=== PATIENT | male | born 1955 | race Caucasian/White ===

== ENCOUNTER 2016-11-19 08:48 | Day surgery (SDC) | payer BC ==
[~2016-11-19 08:48] MED LIST: Sodium Chloride 0.9% 5 ML Syringe FLUSH PRN
[2016-11-19] MEDS: Lactated Ringers 1,000 ML IV SCH (09:21)
--- NOTE | 2016-11-19 09:49 | PCM.PN ---
- General Info Date of Service: 11/19/16 - Review of Systems Systems Review Comment:: 61-year-old male here for upper and lower endoscopy. His lastcolonoscopy was about 10 years ago. He has never had a previous upper endoscopy. He is noticing some worsening symptoms of GERD. This is despite regular use of omeprazole. He is medically stable to proceed today with no significant change in his health status since his recent exam. I discussed the proposed upper and lower endoscopy with the patient. Risks such as but not limited to bleeding and GI injury or discussed. He appears to understand and agrees to proceed. - Patient Data Vitals - most recent: Last Vital Signs Temp 97.1 F 11/19/16 09:07 Pulse 83 11/19/16 09:07 Resp 16 11/19/16 09:07 BP 138/84 11/19/16 09:07 Pulse Ox 97 11/19/16 09:07 Weight - most recent: 99.79 kg Med Orders - Current: Current Medications Lactated Ringer's (Ringers, Lactated) 1,000 mls @ 50 mls/hr IV ASDIRECTED MINNIE Last Admin: 11/19/16 09:21 Dose: 50 mls/hr Sodium Chloride (Syrex Flush) 5 ml FLUSH Q8HR PRN PRN Reason: Keep Vein Open - Problem List Review Problem List Initiated/Reviewed/Updated: Yes - My Orders Last 24 Hours: My Active Orders 11/18/16 11:23 Resuscitation Status Routine 11/18/16 Dinner Nothing Per Oral Diet [DIET] 11/19/16 08:45 Peripheral IV Care [RC] . DIRECTED Verify Patient Consent Obtain [RC] ASDIRECTED Lactated Ringers [Ringers, Lactated] 1,000 ml IV ASDIRECTED Sodium Chloride 0.9% [Syrex Flush] 5 ml FLUSH Q8HR PRN Peripheral IV Insertion Adult [OM.PC] Routine 11/19/16 09:00 Patient to Empty Bladder [RC] ASDIRECTED - Assessment Assessment:: GERD Colon cancer screening - Plan Plan:: upper and lower endoscopy
[2016-11-19] MEDS ORDERED: Midazolam 1 MG/ML 2 ML SDV ONE (10:10)
[2016-11-19] MEDS ORDERED: Lidocaine 2% 100 MG/5 ML Syringe ONE (10:10)
[2016-11-19] MEDS ORDERED: Propofol 200 MG/20 ML SDV ONE (10:10)
[2016-11-19] MEDS ORDERED: fentaNYL 100 MCG/2 ML SDV ONE (10:10)
--- NOTE | 2016-11-19 11:08 | PCM.OPNOTE ---
- General Post-Op/Procedure Note Date of Surgery/Procedure: 11/19/16 Operative Procedure(s): EGD with biopsy and colonoscopy Findings: moderate distal esophagitis likely secondary to reflux small hiatal hernia External hemorrhoids Pre Op Diagnosis: GERD. Colon cancer screening Post-Op Diagnosis: Reflux esophagitis. Hiatal hernia. Hemorrhoids Anesthesia Technique: MAC Primary Surgeon: Shaquille Moore Pathology: biopsies of gastric antrum and distal esophagus Output, Urine Amount: 0 EBL in mLs: 4 Complications: None Condition: Good
[2016-11-19] MEDS: fentaNYL 100 MCG/2 ML SDV ONE (11:34)
[2016-11-19] MEDS: Lidocaine 2% 100 MG/5 ML Syringe ONE (11:35)
[2016-11-19] MEDS: Propofol 200 MG/20 ML SDV ONE (11:35)
[2016-11-19] MEDS: Midazolam 1 MG/ML 2 ML SDV ONE (11:35)
[2016-11-19 11:52] VITALS: BP 149/87
--- NOTE | 2016-11-19 19:47 | OR ---
DATE OF SURGERY: 11/19/2016 SURGEON: Shaquille Moore MD PREOPERATIVE DIAGNOSIS: Gastroesophageal reflux disease and colon cancer screening. POSTOPERATIVE DIAGNOSIS: Hiatal hernia with reflux esophagitis, and external hemorrhoids. OPERATION PERFORMED: Esophagogastroduodenoscopy with biopsy and colonoscopy. INDICATIONS FOR SURGERY: This 61-year-old male is referred for upper endoscopy because of symptoms of gradually worsening acid reflux despite use of omeprazole. He also comes for colonoscopy for colon cancer screening. FINDINGS: On upper endoscopy, the patient has a moderate degree of reflux esophagitis. This encompasses approximately the distal 5 cm of the esophagus. There is areas of hyperemia and some mucosal change although without nodularity or mass effect. The patient has a small hiatal hernia, approximate 2 cm length. The remainder of the stomach and duodenum appear normal. The patient's colon appears normal and colonoscopy although he does have moderate-sized external hemorrhoids. PROCEDURE: The patient was taken to the operating room. He was given intravenous sedation and with him in the left lateral decubitus position, the esophagus is intubated with the Olympus gastroscope. This is carefully advanced under direct visualization through the esophagus, stomach, and into the duodenum where examination to the third portion is performed. After examining the duodenum, the stomach is fully examined including retroflexed examination of the fundus. Random biopsies of the antrum were taken to rule out H. pylori. The upper stomach and GE junction are then carefully re-examined. Biopsies were taken at multiple levels including the GE junction and distal esophagus to evaluate the area that appeared inflamed, to rule out Goff's esophagus. With no sign of any complicating process, the scope was removed after the exam had been completed. Attention is turned to colonoscopy. Digital rectal exam shows no rectal masses. The Olympus colonoscope was inserted into the rectum. Retroflexed examination of the rectal canal was performed. The scope was then carefully advanced under direct visualization through the entire length of the colon until the cecum was reached. Cecal acquisition is confirmed by noting a normal internal cecal anatomy including the appendiceal orifice and ileocecal valve, and the light was also noted to transilluminate the abdominal wall in the right lower quadrant. After carefully examining the cecum, the scope was slowly withdrawn, sequentially re-examining the colonic segments until the entire colon and the rectum had been fully examined. The scope was then removed and the patient is taken from the operating room in satisfactory condition. ESTIMATED BLOOD LOSS: 4 mL. COMPLICATIONS: None. PROGNOSIS: Good. /[id number]/MODL MTDD
== END 2016-11-19 12:22 | disposition home or self-care (01) ==
LOC: KA.SDS 08:48
PROVIDERS: ATTEND Surgery
DX: Z12.11 Encounter for screening for malignant neoplasm of colon (principal); K29.50 Unspecified chronic gastritis without bleeding; K20.9 Esophagitis, unspecified; K44.9 Diaphragmatic hernia without obstruction or gangrene; K21.9 Gastro-esophageal reflux disease without esophagitis; E78.5 Hyperlipidemia, unspecified; Z79.82 Long term (current) use of aspirin; Z79.899 Other long term (current) drug therapy
CPT/HCPCS: 43239; 45378; J2250; J2704; J3010; J7120

== ENCOUNTER 2023-10-02 10:20 | Emergency (ER) | payer MEDICARE, OTHER ==
[2023-10-02 10:43] LABS: BASOPHILS ABSOLUTE AUTO 0.02 10^3/uL (0.00-0.10); BASOPHILS PERCENT AUTO 0.4 % (0.0-1.0); EOSINOPHILS ABSOLUTE AUTO 0.11 10^3/uL (0.10-0.30); EOSINOPHILS PERCENT AUTO 2.1 % (1.0-3.0); HEMATOCRIT 45.8 % (40.0-52.0); HEMOGLOBIN 14.9 g/dL (13.0-17.0); IMMATURE GRAN ABSOLUTE AUTO 0.01 10^3/uL (0.00-0.50); IMMATURE GRAN PERCENT AUTO 0.2 % (0.0-5.0); LYMPHOCYTES ABSOLUTE AUTO 0.95 10^3/uL (1.00-4.00); LYMPHOCYTES PERCENT AUTO 18.3 % (20.0-40.0); MEAN CORPUSCULAR HEMOGLOBIN 27.7 pg (27.0-31.0); MEAN CORPUSCULAR HGB CONC 32.5 g/dL (32.0-36.0); MEAN CORPUSCULAR VOLUME 85.1 fL (82.0-92.0); MEAN PLATELET VOLUME 10.3 fL (7.4-10.4); MONOCYTES ABSOLUTE AUTO 0.36 10^3/uL (0.10-0.80); MONOCYTES PERCENT AUTO 6.9 % (2.0-8.0); NEUTROPHILS ABSOLUTE AUTO 3.73 10^3/uL (2.50-7.00); NEUTROPHILS PERCENT AUTO 72.1 % (50.0-70.0); PLATELET COUNT,PLT 196 10^3/uL (150-400); RED BLOOD CELL COUNT 5.38 10^6/uL (4.50-6.00); RED CELL DISTRIBUTION WIDTH 13.2 % (11.5-14.5); WHITE BLOOD CELL COUNT,WBC 5.18 10^3/uL (5.00-10.00)
[2023-10-02] MEDS: Ondansetron 4 MG/2 ML SDV IVPUSH ONE (10:45)
[2023-10-02] MEDS: Sodium Chloride 0.9% 1,000 ML IV ONE (10:48)
[2023-10-02 10:58] LABS: ALBUMIN 3.87 g/dL (3.40-5.00); BILIRUBIN TOTAL 0.5 mg/dL (0.2-1.0); CALCIUM 9.1 mg/dL (8.7-10.3); CARBON DIOXIDE,CO2 26.5 mmol/L (21.0-32.0); CREATININE 0.87 mg/dL (0.51-1.17); EST CRCL DRUG DOSING (CG) 97.13 mL/min; POTASSIUM,K 4.5 mmol/L (3.5-5.1); PROTEIN TOTAL,TP 7.2 g/dL (6.4-8.2)
[2023-10-02 11:17] VITALS: BP 135/81; PULSE 57
[2023-10-02 11:23] LABS: INFLUENZA A NAA NEGATIVE (NEGATIVE); INFLUENZA B NAA NEGATIVE (NEGATIVE); RESPIRATORY SYNCYTIAL VIR NAA NEGATIVE (NEGATIVE)
[2023-10-02 11:24] LABS: CORONAVIRUS COVID-19 NAA NEGATIVE (NEGATIVE)
== END 2023-10-02 13:52 | disposition home or self-care (01) ==
LOC: KA.ED 10:20
DX: R42 Dizziness and giddiness (principal); R11.2 Nausea with vomiting, unspecified; Z79.82 Long term (current) use of aspirin; Z79.899 Other long term (current) drug therapy; Z20.822 Contact with and (suspected) exposure to COVID-19
CPT/HCPCS: 0241U; 36415; 70450; 80053; 84484; 85025; 96361; 96374; 99284-25; J2405; J7030